=== PATIENT | female | born 1950 | race Caucasian/White ===

== ENCOUNTER 2020-11-25 13:34 | Emergency (ER) | payer MEDICARE, OTHER ==
[2020-11-25 13:34] VITALS: BP 152/91
--- NOTE | 2020-11-25 13:53 | PCM.EKG ---
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
[2020-11-25 13:56] LABS: BASOPHIL % 0.1 % (0.0-0.2); EOSINOPHIL # 0.1 10^3/uL (0.0-0.2); EOSINOPHIL % 0.4 % (0.0-5.0); LYMPHOCYTES # 1.08 10^3/uL1 (1.0-4.8); LYMPHOCYTES % 8.8 % (24.0-44.0); MEAN CORP HGB 30.7 pg (26-34); MONOCYTES # 0.8 10^3/uL (0.3-0.8); MONOCYTES % 6.8 % (5.0-12.0); NEUTROPHIL # 9.9 10^3/uL (1.8-7.7); NEUTROPHILS % 81.2 % (41.0-85.0); PLATELET COUNT 474 10^3/uL (150-400); RED CELL DISTRIBUTION WIDTH 12.1 % (11.5-14.5)
--- NOTE | 2020-11-25 13:58 | ER.PDOC ---
General Chief Complaint: Stroke Symptoms Stated Complaint: POSS STROKE Time seen by MD: 13:54 Source: patient, family (son) Exam Limitations: no limitations History of Present Illness Initial Comments Patient brought in by son with complaint of slurred speech, left facial and upper extremity weakness. Patient woke up from bed this morning at about 7:00 with the symptoms. Last known well time was last night before she went to bed. No swallowing difficulties. Severity: moderate New Weakness: LUE, (L) facial Usually: orientedx3 Allergies: Coded Allergies: No Known Allergies (Unverified , 11/25/20) Past Medical History Medical History: no pertinent history Surgical History: no surgical history Family History Significant Family History: no pertinent family hx Social History Smoking: non-smoker Alcohol Use: none Drug Use: none Review of Systems Constitutional: no symptoms reported Respiratory: no symptoms reported Cardiovascular: no symptoms reported Gastrointestinal: no symptoms reported Genitourinary: no symptoms reported Psychiatric/Neurological: see HPI All Other Systems: Reviewed and Negative Physical Exam General Appearance: alert, no distress HEENT: no apparent trauma, EOM's intact, no nystagmus, PERRL, ENT inspection nml, pharynx nml, airway intact, oral exam nml Neuro/Psych: oriented x3, nml speech/cognition, nml mood/affect Cranial Nerves: facial palsy (mild left), forehead spared Peripheral Exam: weakness (LUE compared with to RUE) Neck: supple, non-tender, no carotid bruit Respiratory: no resp distress, breath sounds nml CVS: reg rate & rhythm, heart sounds nml Abdomen: non-tender, no organomegaly, no distention Skin: color nml, no rash, warm/dry Extremities: non-tender, nml ROM, no pedal edema Results/Orders Results/Orders Orders - ROBERT AVERY MD Cbc With Auto Diff (11/25/20 13:47) Comprehensive Metabolic Panel (11/25/20 13:47) Creatine Kinase (11/25/20 13:47) PT (11/25/20 13:47) Partial Thromboplastin Time. (11/25/20 13:47) Troponin I (11/25/20 13:47) Ekg-Routine (11/25/20 13:47) Ct Head Wo Contrast (11/25/20 13:47) Vital Signs Date Time Temp Pulse Resp B/P (MAP) Pulse Ox O2 Delivery O2 Flow Rate FiO2 11/25/20 13:34 98.7 94 16 152/91 (111) 97 Room Air 11/25/20 13:34 98.7 94 16 11/25/20 13:34 98.8 94 18 97 Laboratory Tests Test 11/25/20 13:45 White Blood Count 12.2 10^3/uL (4.5-11.0) H Red Blood Count 4.98 10^6/uL (4.00-5.20) Hemoglobin 15.3 g/dL (12.0-15.0) H Hematocrit 46.5 % (36.0-46.0) H Mean Corpuscular Volume 93.4 fL (78-100) Mean Corpuscular Hemoglobin 30.7 pg (26-34) Mean Corpuscular Hemoglobin Concent 32.9 g/dL (33-36.5) L Red Cell Distribution Width 12.1 % (11.5-14.5) Platelet Count 474 10^3/uL (150-400) H Mean Platelet Volume 10.1 fL (7.8-11.0) Neutrophils (%) (Auto) 81.2 % (41.0-85.0) Lymphocytes (%) (Auto) 8.8 % (24.0-44.0) L Monocytes (%) (Auto) 6.8 % (5.0-12.0) Neutrophils # (Auto) 9.9 10^3/uL (1.8-7.7) H Lymphocytes # (Auto) 1.08 10^3/uL1 (1.0-4.8) Monocytes # (Auto) 0.8 10^3/uL (0.3-0.8) Absolute Immature Granulocyte (auto 0.33 10^3 u/L (0-2) Absolute Eosinophils (auto) 0.1 10^3/uL (0.0-0.2) Immature Granulocytes % 2.70 % (0.00-0.50) H Eosinophils % 0.4 % (0.0-5.0) Basophils % 0.1 % (0.0-0.2) Basophils # 0.0 10^3/uL (0.0-0.1) Prothrombin Time 11.7 SEC (9.6-12.0) Prothrombin Time INR (Non-Therap) 1.1 Activated Partial Thromboplast Time 22.7 SEC (24.67-30.72) Sodium Level 141 mmol/L (132-145) Potassium Level 4.0 mmol/L (3.6-5.2) Chloride Level 103.0 mmol/L (96-109) Carbon Dioxide Level 27.0 mmol/L (20.0-32) Anion Gap 15.0 Blood Urea Nitrogen 21 mg/dL (7-18) H Creatinine 0.92 mg/dL (0.59-1.40) Estimated GFR () 73.0 (>/=60) Est GFR (CKD-EPI)(Non-Afr [place]) 60.3 (>/=60) BUN/Creatinine Ratio 22.0 Glucose Level 103 mg/dL (70-110) Calcium Level 9.0 mg/dL (8.4-10.5) Total Bilirubin 0.8 mg/dL (0.2-1.0) Aspartate Amino Transferase (AST) 21 U/L (0-35) Alanine Aminotransferase (ALT) 25 U/L (12-78) Alkaline Phosphatase 76 U/L (50-136) Total Creatine Kinase 42 U/L (26-192) Troponin I < 0.02 ng/mL (0.00-0.05) Total Protein 7.5 g/dL (6.4-8.2) Albumin 2.4 g/dL (3.4-5.0) L Globulin 5.1 Albumin/Globulin Ratio 0.470 Progress Progress Patient's head CT shows no acute intracranial abnormality. Cardiac enzymes and rest of labs are unremarkable. She refused CTA head/neck. and chest x-ray. I wanted to transfer her to [place] or [place] if [facility] are full as they have been earlier today. She refused to be transferred for admission. She signed and left AGAINST MEDICAL ADVICE. She understands that leaving AGAINST MEDICAL ADVICE may result in worsening condition, massive stroke, cardiopulmonary arrest and . I told her to return to the ED at any time she is feeling worse. EKG/XRAY/CT/US EKG: NSR, LVH EKG Comments: HR 88, normal P axis ER DEPART Departure Time of Disposition: 15:52 Disposition: LEFT AGAINST MEDICAL ADVICE Impression: Primary Impression: CVA (cerebral vascular accident) Condition: Against Medical Advice Patient Instructions: Stroke Prevention, [id number], Stroke, [id number], Stroke, Therapy After, Adult Referrals: PCP,UNKNOWN (PCP) PRIMARY CARE PROVIDER Duration or Time Spent with Pa: 60 min Problem Qualifiers Primary Impression: CVA (cerebral vascular accident) CVA mechanism: unspecified Qualified Codes: I63.9 - Cerebral infarction, unspecified ROBERT AVERY MD Nov 25, 2020 13:58
--- NOTE | 2020-11-25 14:08 | NUR ---
CT PT REFUSES CONTRAST FOR CTA, REPORTED TO EDP. PT TO CT IN STABLE CONDITION.
[2020-11-25 14:14] LABS: ALANINE AMINOTRANSFERASE(ML) 25 U/L (12-78); ALKALINE PHOSPHATASE 76 U/L (50-136); ASPARTATE AMINO TRANSFERASE 21 U/L (0-35); GLUCOSE 103 mg/dL (70-110)
--- NOTE | 2020-11-25 14:30 | DIREP ---
PROCEDURE:CT HEAD OR BRAIN W/O CONTRAST COMPARISON:None. INDICATIONS:Left side weakness TECHNIQUE:CT images were created without intravenous contrast. FINDINGS: VENTRICLES:The ventricles are normal in size and configuration. CEREBRUM:Normal cerebral morphology with appropriate eastman white matter differentiation. CEREBELLUM:A small remote appearing infarct is seen in the lateral left cerebellum. BRAINSTEM:Negative. BASAL CISTERNS:Negative. HEMORRHAGE:No MASS LESION:No ACUTE INFARCT:No SKULL:Normal. SINUSES:Normal. OTHER:None CONCLUSION:There are findings of a small remote appearing infarct in the lateral left cerebellum. No hemorrhage or acute infarct is seen. Dictated by: Rudy Darling M.D. on 11/25/2020 at 02:27 PM
[2020-11-25 14:35] VITALS: BP 148/84
--- NOTE | 2020-11-25 15:30 | NUR ---
IV 20G IV REMOVED FROM L AC, CATHETER INTACT.
[2020-11-25 15:35] VITALS: BP 146/80
== END 2020-11-25 15:45 | disposition left against medical advice (07) ==
LOC: ER 13:34
DX: I63.9 Cerebral infarction, unspecified (principal)
CPT/HCPCS: 36415; 70450; 80053; 82550; 84484; 85025; 85610; 85730; 93005; 99285